=== PATIENT | male | born 1990 | race Two or more races ===

== ENCOUNTER 2020-06-18 03:42 | Emergency (ER) | payer MEDICAID ==
[~2020-06-18] VITALS: Ht 167.6 cm; Wt 65.8 kg
[2020-06-18] MEDS ORDERED: MORPHINE SULF INJ 2 MG/ML SYRINGE 1ML IV ONE (05:30)
[2020-06-18] MEDS ORDERED: ONDANSETRON HCL 4 MG/2 ML VIAL IV ONE (05:30)
[2020-06-18 06:14] VITALS: BP 108/64
== END 2020-06-18 06:32 | disposition short-term general hospital (02) ==
LOC: ER 03:46
DX: S02.31XA Fracture of orbital floor, right side, initial encounter for closed fracture (principal); S02.40EA Zygomatic fracture, right side, initial encounter for closed fracture; S02.91XA Unspecified fracture of skull, initial encounter for closed fracture; W22.8XXA Striking against or struck by other objects, initial encounter; Y93.I9 Activity, other involving external motion; Y92.89 Other specified places as the place of occurrence of the external cause; Y99.8 Other external cause status
CPT/HCPCS: 70450; 70486; 72125; 96374; 96375; 99291; J2270; J2405